=== PATIENT | male | born 1995 | race Caucasian/White ===

== ENCOUNTER 2019-10-30 09:44 | Emergency (ER) | payer OTHER ==
[~2019-10-30] VITALS: Ht 175.3 cm; Wt 94.3 kg
[2019-10-30 09:51] VITALS: BP 136/88; Ht 175.3 cm; Wt 94.3 kg
== END 2019-10-30 10:30 | disposition home or self-care (01) ==
LOC: ED 09:44
DX: K59.00 Constipation, unspecified (principal); K21.9 Gastro-esophageal reflux disease without esophagitis; J30.9 Allergic rhinitis, unspecified